=== PATIENT | male | born 1950 | race Caucasian/White ===

== ENCOUNTER 2016-09-13 07:45 | Inpatient (IN) | payer BC ==
--- NOTE | ~2016-09-13 | OP ---
Record Of Operation [facility] [address] [place]. [address] NAME: YOSELIN MOSQUEDA : 52 STATUS : ADM IN PAT#: [id number] AGE: 65 ADM/REG DATE : 09/14/16 MR#: [id number] REPORT SERV DATE: 09/19/16 DICTATED BY: ISAIAH SERNA DATE: 09/19/16 REPORT STATUS : Draft TRANSCRIBED BY: MODL DATE: 09/19/16 DATE OF PROCEDURE: 09/18/2016 PREOPERATIVE DIAGNOSIS: Coronary artery disease with unstable angina. POSTOPERATIVE DIAGNOSIS: Coronary artery disease with unstable angina. OPERATIVE PROCEDURE: Urgent coronary artery bypass grafting x4 with endoscopic vein harvest utilizing the left internal mammary artery to the LAD artery; reverse saphenous vein graft from the aorta to the diagonal artery; from the aorta to the ramus intermedius; and from the aorta to the obtuse marginal artery; and also transesophageal echocardiography. ANESTHESIA: General endotracheal anesthesia, AA. Chest tubes placed were two. Pacing wires two on the right ventricle and two on the right atrium. PERTINENT HISTORY: The patient is a 65-year-old gentleman, referred by Dr. Isaiah George with severe coronary artery disease. The patient had a previous stent placed in the right coronary artery and now has severe disease involving the left-sided system and unstable angina. OPERATIVE FINDINGS: The patient had transesophageal echocardiogram which demonstrated no mitral valvular insufficiency at the completion of the procedure and also demonstrated preserved left ventricular function. The operative targets were adequate although the coronary artery disease was quite diffuse. The right coronary artery had a patent stent and no significant stenoses but there were multiple palpable atheromatous plaques in the right coronary arterial system. OPERATIVE PROCEDURE: The patient was taken to the operating room and placed in the supine position. Anesthesia was obtained. The patient was prepped and draped in the usual sterile fashion. Transesophageal echocardiogram was performed demonstrating mild mitral insufficiency. The greater saphenous vein was harvested from the lower extremity with invasive technique and those wounds were closed in a two-layer fashion. A midline sternotomy incision was made and sternum was divided. Left internal mammary artery was dissected and found to have good flow. Heparin was then infused. The patient was then started on cardiopulmonary bypass. Cross-clamp was applied. Cardioplegia was infused in antegrade and retrograde fashion over a period of 15 minutes. The obtuse marginal artery was bypassed with a reverse saphenous vein graft in an end-to-side fashion. The ramus intermedius was bypassed from the reverse saphenous vein graft in an end-to-side fashion. The first diagonal artery was bypassed with reverse saphenous vein graft in an end-to-side fashion. The left internal mammary artery was used to bypass the LAD artery in an end-to- side fashion. Cross-clamp was sewn in place on the 3 proximal anastomoses on the ascending aorta. Cross-clamp was removed. Good hemostasis was noted. Two pacing wires were placed on the right ventricle and two on the right atrium and two chest tubes were placed. The patient was warmed to 36 centigrade and maintained a sinus rhythm. He was weaned from Record Of Operation [address] [place]. [address] NAME: YOSELIN MOSQUEDA ANSHUL : 52 STATUS : ADM IN [facility]#: [id number] AGE: 65 ADM/REG DATE : 09/14/16 MR#: [id number] REPORT SERV DATE: 09/19/16 DICTATED BY: ISAIAH SERNA DATE: 09/19/16 REPORT STATUS : Draft TRANSCRIBED BY: MILADIS DATE: 09/19/16 cardiopulmonary bypass. Transesophageal echocardiogram was performed at that time and demonstrated no mitral insufficiency present with good ventricular function. The patient is not on any inotropic support. The protamine sulfate was infused. Hemostasis was adequate. Sternum was closed with 4 sternal cables. Soft tissue was closed in the usual manner. Sterile dressings were applied. The patient tolerated the procedure well and was taken back to the ICU in stable condition. RADHA/MILADIS Isaiah Serna M.D. / [id number] CC: Merary Desai Jr., M.D.
--- NOTE | ~2016-09-13 | CN ---
Consultation Report [facility] [address] [place]. [address] NAME: YOSELIN MOSQUEDA : 52 STATUS : ADM IN PAT#: [id number] AGE: 65 ADM/REG DATE : 09/14/16 MR#: [id number] REPORT SERV DATE: 09/19/16 DICTATED BY: ELIANA AGUILAR DATE: 09/19/16 REPORT STATUS : Draft TRANSCRIBED BY: MODL DATE: 09/19/16 MEDICAL CONSULTATION DATE OF CONSULTATION: REASON FOR CONSULTATION: Diabetes, uncontrolled. HISTORY OF PRESENT ILLNESS: This is a 65-year-old white male, who has longstanding history of adult-onset diabetes mellitus. He has been seen by life educator in his preoperative period. He had a hemoglobin A1c of 6.8. He is followed by Dr. Johny Dalal. He is on oral agents prior to admission. He has undergone a CABG four vessels, KYE to LAD, and saphenous vein graft to a diagonal, saphenous vein graft to ramus intermedius, and saphenous vein graft to the obtuse marginal. He has done well postoperatively and is transferred to the floor. I am seeing the patient on the floor per request of Dr. Serna. PAST MEDICAL HISTORY: He has history of hypothyroidism and hypertension. He has hyperlipidemia, hypertriglyceridemia, and is medicated for this. He sees Dr. Johny Dalal. HOSPITAL MEDICATIONS: Include now amlodipine 5 mg p.o. daily, atorvastatin 40 mg p.o. at bedtime, amiodarone 400 mg q.6 h., levothyroxine 100 mcg p.o. daily, lisinopril 2 mg, and metoprolol 2.5 p.o. b.i.d. SOCIAL HISTORY: He is . Lives with . 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 He does not smoke or drink. He does not take drugs. FAMILY HISTORY: Mother had diabetes and coronary artery disease. Father had prostate cancer and dementia. REVIEW OF SYSTEMS: He has chest pain with movement and deep breathing. No cough. No fever, chills, night sweats, melena, hematemesis, unilateral weakness. He feels fidgety, agitated, and feels like he could do more than he is able to be physically now postoperatively. The remainder of review of systems is negative. PHYSICAL EXAMINATION: GENERAL: White male, in no acute distress. VITAL SIGNS: Blood pressure 138/70. Blood sugar went to 129 from 90 early, off the insulin drip. HEENT: EOMI. Sclerae clear. Conjunctivae pink. NECK: No bruit without any JVD. Consultation Report [facility] [address] [place]. [address] NAME: YOSELIN MOSQUEDA : 52 STATUS : ADM IN PAT#: [id number] AGE: 65 ADM/REG DATE : 09/14/16 MR#: [id number] REPORT SERV DATE: 09/19/16 DICTATED BY: ELIANA AGUILAR DATE: 09/19/16 REPORT STATUS : Draft TRANSCRIBED BY: MILADIS DATE: 09/19/16 CHEST: Clear to A and P. HEART: Regular S1, S2 without murmur, gallop, or click. ABDOMEN: Soft, nontender. Bowel sounds positive. No HSM. EXTREMITIES: Have trace edema bilaterally from saphenous vein harvesting. NEUROLOGIC: He withdraws to plantar stimulation. Investigation Officer is equal and symmetric bilaterally. Coordination intact. He has no tremor. He does have some intermittent confusion. He has aching and groaning. LABORATORY DATA: The creatinine is 1.12, BUN is 19. Sodium 147, potassium 3.8. His hemoglobin is 10.2, hematocrit 30.3, white count 8.9, platelets 183,000. His blood sugars gone from 90 to 129 on 1 unit/hour. ASSESSMENT: 1. Diabetes type 2, fairly well controlled with oral agents preoperatively and I believe that metformin would be sufficient when we restart him back initially, though with his anorexia, we will withhold this and leave him here 10 units subcu at bedtime starting tonight. We will discontinue the insulin drip now and use sliding scale level 2. 2. Status post coronary artery bypass graft x4. 3. Hypothyroidism. 4. Anorexia. 5. Hypertension by history. PLAN: As outlined above. Converting to subcutaneous basal insulin and sliding scale to cover bolus though he may need bolus before meals to control prior to discharge. We will follow. Thank you for the consultation. SIRIA/MILADIS Eliana Aguilar M.D. / [id number] CC: Merary Desai Jr., M.D. Kent Grotefendt, M.D.
--- NOTE | ~2016-09-13 | CN ---
Consultation Report [facility] [address] [facility] [place]. [address] NAME: YOSELIN MOSQUEDA : 52 STATUS : ADM IN PAT#: [id number] AGE: 65 ADM/REG DATE : 09/14/16 MR#: [id number] REPORT SERV DATE: 09/19/16 DICTATED BY: ISAIAH SERNA DATE: 09/19/16 REPORT STATUS : Draft TRANSCRIBED BY: MODL DATE: 09/19/16 CONSULTATION DATE OF CONSULTATION: 09/16/2016 PERTINENT HISTORY: The patient is a 65-year-old gentleman, referred by Dr. Isaiah George after a cardiac catheterization demonstrated severe coronary artery disease. The patient is admitted to the hospital with unstable angina and very tight stenoses involving the LAD artery on the left side of the coronary system and therefore the patient is admitted to the hospital for heparin therapy as he had adequate time for the Plavix to leave the system and normal platelet function to return prior to the surgical intervention. The patient had episodes of angina and shortness of breath with exertion. PAST MEDICAL HISTORY: The past medical history is significant for no previous open cardiothoracic surgery. Did have previous stent in the right coronary artery. History of diabetes mellitus and hypertension. SOCIAL HISTORY: Negative for tobacco and ethanol use at this time. FAMILY HISTORY: Positive for coronary disease. REVIEW OF SYSTEMS: Significant for only those Listed in the history of present illness. PHYSICAL EXAMINATION: VITAL SIGNS: Afebrile. Blood pressure is 140/90, heart rate is 70. GENERAL: He is in no acute distress. Alert and oriented x3. NEUROLOGICAL: Intact. NECK: No bruits noted in his neck. No adenopathy of the neck. CHEST: He had breath sounds bilaterally without wheezes, rales, or rhonchi. HEART: The patient had regular rate and rhythm. No murmur noted. ABDOMEN: Soft and nontender without masses. EXTREMITIES: Warm and dry. SKIN: Showed no rash. The cardiac catheterization on my examination showed tight stenoses of the LAD artery and stenosis involving the first diagonal artery. There is stenosis involving the circumflex artery and total occlusion of a very small distal branch with also stenosis involving the ramus intermedius. No left ventriculogram had been performed. There was a patent right coronary artery but patent stent in the right coronary artery. No significant disease or atheroma was present. IMPRESSION: The impression at this time is severe coronary disease with unstable angina. Consultation Report [facility] [address] [facility] [address] NAME: YOSELIN MOSQUEDA : 52 STATUS : ADM IN PAT#: [id number] AGE: 65 ADM/REG DATE : 09/14/16 MR#: [id number] REPORT SERV DATE: 09/19/16 DICTATED BY: ISAIAH SERNA DATE: 09/19/16 REPORT STATUS : Draft TRANSCRIBED BY: MILADIS DATE: 09/19/16 PLAN: Plan is to proceed with coronary revascularization after adequate Plavix washout. RADHA/MILADIS Isaiah Serna M.D. / [id number] CC: Merary Deasi Jr., M.D.
--- NOTE | ~2016-09-13 | CN ---
Consultation Report [facility] [address] [place]. [address] NAME: YOSELIN MOSQUEDA : 52 STATUS : REG REF PAT#: [id number] AGE: 65 ADM/REG DATE : 09/13/16 MR#: [id number] REPORT SERV DATE: 09/14/16 DICTATED BY: ELIANA MYERS DATE: 09/13/16 REPORT STATUS : Draft TRANSCRIBED BY: MODL DATE: 09/13/16 DATE OF CONSULTATION: REASON FOR CONSULTATION: Evaluation and management of diabetes and hypothyroidism. The history is obtained from the patient and from his current chart. HISTORY OF PRESENT ILLNESS: Mr. Mosqueda in the setting of known coronary artery disease post previous PCI in 2012, began having exertional chest pain and dyspnea. He saw his technical designer. He had an outpatient stress test which was abnormal. He underwent cardiac catheterization today with findings: Moderate to severe stenosis in the LAD at the first diagonal bifurcation. Critical mid LAD stenosis with reduction in KARY flow. Severe ostial ramus. Moderate to severe proximal OM1. Occluded proximal circumflex after OM1 with weak collateralization noted. LVEDP of 10 to 12. Admission for IV heparin and CT surgical consultation for CABG plus echocardiography was recommended. An echocardiogram was done today which showed normal LV size with preserved EF of 55%. Mild diastolic dysfunction. Mild left atrial enlargement. Normal RV size and systolic function. Aortic valve sclerosis with mild regurgitation and no stenosis. Borderline mitral valve prolapse, posterior P2 segment. Mild eccentric mitral regurgitation. Mildly dilated aortic root. He has a history of diabetes for perhaps 20 years. He has been on medical therapy with metformin. He does not follow any particular diet, nor does he check his blood sugars at home. He indicates his last hemoglobin A1c was 6.7. He has not had formal diabetes education. He reports no symptoms suggestive of hypoglycemia. His weight has been stable. He stays active. He has no history of complications of retinopathy, neuropathy, nephropathy, gastroparesis, or frequent infections. He has a history of hypothyroidism for perhaps 15 years. He has been on a stable dose of Synthroid. He is not certain when his last TSH has been. He has not noted any change in his skin. He has not been fatigued. He has not been retaining fluid. No tremor. No diffuse muscle or joint pains. No constipation or diarrhea or change in sense of well being. His other medical history includes: 1. Hypertension. 2. Hyperlipidemia. 3. B12 deficiency. 4. Retinal embolus, OS, 02/2016, with reported negative carotid ultrasound. 5. GERD symptoms. 6. Clinical gout. Consultation Report [facility] [address] [place]. [address] NAME: YOSELIN MOSQUEDA : 52 STATUS : REG REF PAT#: [id number] AGE: 65 ADM/REG DATE : 09/13/16 MR#: [id number] REPORT SERV DATE: 09/14/16 DICTATED BY: ELIANA MYERS DATE: 09/13/16 REPORT STATUS : Draft TRANSCRIBED BY: MILADIS DATE: 09/13/16 He has no history of cancer, VTE, COPD, sleep apnea, pulmonary fibrosis, syncope, symptomatic arrhythmias, stroke, seizure, gastrointestinal bleeding, cirrhosis, pancreatitis, hepatitis, renal stones, or voiding dysfunction. He has no systemic rheumatic disease and is not on immunosuppressive therapy. HOME MEDICATIONS: Amlodipine 5 mg daily; vitamin C 500 mg daily; aspirin 81 mg daily; Lipitor 40 mg daily; vitamin D3 5000 units daily; Plavix 75 mg daily; B12 2000 mcg daily; levothyroxine 100 mcg daily; Prinivil 2.5 mg daily; Glucophage 1000 mg twice daily; Lopressor 25 mg twice daily; and nitroglycerin sublingually as needed. ALLERGIES OR INTOLERANCE: To codeine and hydrocodone. FAMILY HISTORY: No sibs. Mother with cardiovascular disease. Father with dementia and had prostate cancer. SOCIAL HISTORY: Current marriage for four years. Was in the [employer] business. 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 Stopped smoking 25 years ago. Uses alcohol in small amounts daily. 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 REVIEW OF SYSTEMS: Complete, done with patient in room and negative except as noted above. PHYSICAL EXAMINATION: VITAL SIGNS: O2 saturation 96% on room air, blood pressure 125/68, temperature 97.5, pulse 82, and respirations 25. Weight 76.28 kg. Height 5 feet 9 inches. GENERAL: This is a stated age-appearing, well-developed, well-nourished white male. Examined in cardiac short stay 6. He is alert, oriented, cooperative, conversant, and appropriate. SKIN: Warm and dry. No rash, petechia, or ecchymosis. Skin is estevez. NODES: No palpable axillary, cervical, or inguinal. HEENT: Atraumatic with symmetric facies. Lids, sclerae, and conjunctivae negative. No xanthelasma, scleral icterus, or conjunctival petechiae or injection. Pupils are equal, round, and reactive to light. Extraocular movements intact. No nystagmus. Hearing intact. External ears negative. Nose negative. Anterior nares clear. Lips, gums, mucosa, hard and soft palates, posterior pharynx, tongue, gums, and teeth negative. NECK: No visible JVD or asymmetry. No palpable mass, goiter, or tenderness. Trachea midline. Nontender. LUNGS: Clear to auscultation. Normal respiratory effort. HEART: PMI not palpable. Regular rate and rhythm with 1/6 systolic murmur without diastolic murmur, click, rub, or S3 gallop. Pulses, 2+ left radial, 2+ right radial (cath site), 2+ femoral and dorsalis pedis. ABDOMEN: Soft, nontender. No guarding, rebound, or rigidity. Cannot feel liver, spleen, kidneys, or aortic pulsation. Consultation Report [address] [place]. [address] NAME: YOSELIN MOSQUEDA : 52 STATUS : REG REF PAT#: [id number] AGE: 65 ADM/REG DATE : 09/13/16 MR#: [id number] REPORT SERV DATE: 09/14/16 DICTATED BY: ELIANA MYERS DATE: 09/13/16 REPORT STATUS : Draft TRANSCRIBED BY: MILADIS DATE: 09/13/16 UPPER AND LOWER EXTREMITIES: No active synovitis, clubbing, or edema. NEUROLOGIC: Mental status normal. Cranial nerves 2 through 12 normal. Deep tendon reflexes absent. Sensory intact to touch and temperature. PSYCHIATRIC: Appropriate mood and affect. DATA: That is available: Sodium 138, potassium 4.6, chloride 106, CO2 of 26, BUN 17, creatinine 1.03, glucose 130, calcium 8.89. Cholesterol 175, HDL 36, LDL 63, non-HDL 119, triglycerides 281. White count 4.7, hemoglobin 14.1, platelets 176,000. Chest x-ray not available. EKG: Sinus rhythm, no acute changes. ASSESSMENT: This is a 65-year-old white male with: 1. Diabetes. 2. Hypothyroid. 3. Hypertension. 4. Hyperlipidemia. 5. Multivessel coronary disease for CABG consideration with previous history of PCI in 2012. 6. B12 deficiency. 7. Retinal embolus, left eye, 01/2016, with negative carotid ultrasound. 8. Gastroesophageal reflux disease symptoms. 9. Clinical gout. PLAN: Metformin has been held. Begin correction scale insulin. A 2000-calorie diet. Check TSH and A1c in addition to urinalysis, chest x-ray, and hepatic function panel. We will follow up in a.m. Thank you for this consultation. DD/MODL Eliana Myers M.D. / [id number] CC: Merary Desai Jr., M.D.
--- NOTE | ~2016-09-13 | DS ---
Discharge Summary [facility] [address] [place]. [address] NAME: YOSELIN MOSQUEDA : 52 STATUS : DIS IN PAT#: [id number] AGE: 65 ADM/REG DATE : 09/14/16 MR#: [id number] REPORT SERV DATE: 10/08/16 DICTATED BY: ANTONIO GEORGE JR. DATE: 10/07/16 REPORT STATUS : Draft TRANSCRIBED BY: MILADIS DATE: 10/07/16 Data Collection from hospitalization DISCHARGE DIAGNOSES: 1. Coronary artery disease, status post coronary artery bypass. 2. Hypertension. 3. Adult-onset diabetes. 4. History of old inferior myocardial infarction. 5. Mitral insufficiency-nonrheumatic. 6. Mixed hyperlipidemia. 7. Hypothyroidism. 8. Former smoker. 9. B12 deficiency. 10.Gout. 11.Gastroesophageal reflux disease. 12.History of retinal embolus. CONSULTATIONS: Dr. Isaiah George, Dr. Martin Myers. PROCEDURES PERFORMED: 1. Cardiac catheterization, 09/13/2016. 2. Urgent coronary artery bypass grafting x4 with endoscopic vein harvest utilizing the FONTANA to the LAD, reverse saphenous vein graft from the aorta to the diagonal artery, from the aorta to the ramus intermedius, and from the aorta to the obtuse marginal artery and also transesophageal echocardiography, 09/18/2016. 3. Carotid blood flow study, 09/13/2016. MEDICATIONS: Norvasc 5 mg daily, vitamin C 500 mg daily, aspirin 81 mg daily, Lipitor 40 mg at bedtime, vitamin D3 of 5000 units daily, Plavix 75 mg daily, vitamin B12 of 2000 mcg sublingually daily, levothyroxine 100 mcg daily, Prinivil 10 mg daily, Glucophage XR 1000 mg twice a day, Lopressor 25 mg twice a day, NitroQuick 0.4 mg sublingually as needed, Ultram 50 mg every four hours as needed. CONDITION AT DISCHARGE: Stable. DISPOSITION: The patient was discharged to home on an 1800-calorie cardiac/diabetic diet with activities as instructed. He would follow up with me, 10/22/2016. He would follow up with Dr. Isiaah Serna, 10/14/2016. He would follow up with Dr. Johny Dalal in 7 to 10 days following discharge. HOSPITAL COURSE: This is a 65-year-old man who underwent a cardiac catheterization on 09/13/2016. This demonstrated severe coronary artery disease. The patient had unstable angina and very tight stenoses involving the LAD artery on the left side and the coronary system and it was felt that the patient would need heparin therapy as he had adequate time for Plavix to leave the system and normal platelet function to return prior to further surgical intervention. The patient had episodes of angina and shortness of breath with exertion. He was admitted to the hospital for further evaluation and treatment. Discharge Summary [address] [address] NAME: YOSELIN MOSQUEDA : 52 STATUS : DIS IN PAT#: [id number] AGE: 65 ADM/REG DATE : 09/14/16 MR#: [id number] REPORT SERV DATE: 10/08/16 DICTATED BY: ANTONIO GEORGE JR. DATE: 10/07/16 REPORT STATUS : Draft TRANSCRIBED BY: MILADIS DATE: 10/07/16 Upon admission, he was seen by Dr. Isaiah Serna. The patient has severe coronary artery disease. He has had a previous stent placed in the right coronary artery and now has severe disease involving the left side and sustained an unstable angina. It was felt that the patient would need to undergo coronary artery bypass grafting. A carotid blood flow study was performed as well as an echocardiogram. The patient was seen in consultation by Dr. Martin Myers for evaluation and management of diabetes and hypothyroidism. An echocardiogram had shown normal LV size with preserved ejection fraction of 55%. There was mild diastolic dysfunction and mild left atrial enlargement. There was normal right ventricular size and systolic function. There was aortic valve sclerosis with mild regurgitation and no stenosis. There was borderline mitral valve prolapse, posterior P2 segment. There was mild eccentric mitral regurgitation and mildly dilated aortic root. The patient has had a history of diabetes for about 20 years. He had been on medical therapy with metformin. He does not follow any particular diet nor does he check his blood sugars at home. He said last hemoglobin A1c was 6.7. He had not had any formal diabetes education. He reported no symptoms suggestive of hypoglycemia. His weight had been stable. He said he stays active. Metformin was held. He was placed on sliding scale insulin and a 2000-calorie diet. We were going to check a TSH and hemoglobin A1c in addition to urinalysis chest x-ray and hepatic function panel. On the 09/14/2016, he became a full admit. He had no chest pain or dyspnea. He had no edema. He had normal distal pulses. Insulin was increased. He did have a cough. The following day, aspirin, atorvastatin, and metoprolol were continued. Echocardiogram showed normal systolic function. Heparin drip continued. Over the next couple of days, plans were made to proceed with surgical intervention. Echocardiogram had shown the ejection fraction of 55%. He has mild mitral regurgitation and mild aortic insufficiency. He had no aortic stenosis. He had no complaints of chest pain. Blood pressure was controlled. His Synthroid was continued. He underwent diabetes education. On 09/18/2016, he was taken to the operating room where he underwent the above-mentioned procedure by Dr. Isaiah Serna. He tolerated this well. There were no complications. The following day, he had no complaints. He was doing well. Metoprolol was started. After norepinephrine was stopped. Other anticoagulation was held for now. He was up sitting in a chair. Creatinine level was 1.12. His wounds looked okay. On the 09/20/2016, his hemoglobin A1c was 6.8. He had received steroids intraoperatively and did have elevated blood glucose level. Blood pressure was uncontrolled at this time. Lisinopril was being given. Synthroid was continued. We encouraged him to increase his ambulation. Discharge planning was performed. Pacing wires and chest tubes were removed. We encouraged him to use incentive spirometry. O2 was being weaned. Blood pressure was now controlled. On 09/22/2016, he was up sitting in a chair. He was still on O2, but his O2 saturations were 93% to 94% on room air. He had no shortness of breath. Later in the day, his O2 saturation was 97% on room air. Metformin was going to be continued at home. Blood pressure was controlled. Discharge instructions were given. Due to his improved and stable condition, he was discharged to home with the above-stated instructions. Information collected by: Narda Lord I submit the above information as my discharge summary. Discharge Summary [address] [facility] [place]. [address] NAME: YOSELIN MOSQUEDA ANSHUL : 52 STATUS : DIS IN PAT#: [id number] AGE: 65 ADM/REG DATE : 09/14/16 MR#: [id number] REPORT SERV DATE: 10/08/16 DICTATED BY: ANTONIO GEORGE JR. DATE: 10/07/16 REPORT STATUS : Draft TRANSCRIBED BY: MILADIS DATE: 10/07/16 TG/MILADIS Antonio George Jr., M.D. / [id number] CC: Merary Desai Jr., M.D. Stephen Martin, M.D.
[~2016-09-13 07:45] MED LIST: AMIT25 PO; ASAB PO; B POLLEN PO; CENTRUM TAB1 TAB PO; CYANO1000T PO; EFFIENT10 PO; GLUCOPHXR PO; GLUCPH PO; LEVOTHYROXIN100 MCG PO; LIPITOR40 PO; LOP25 PO; NITROQUICK0.4 MG SL; NORV5 PO; PLAVIX PO; PRIN2.5 PO; T PO; VITAMIN B-121000 MC1 SL; VITAMIN D1000 UNI1 PO; VITAMIN D31000 UNIT PO; VITC500 PO; VITE PO
[2016-09-13 08:43] LABS: BASOPHILS 0.8 %; BASOPHILS ABSOLUTE 0.04 10/3/uL (0.0-0.16); EOSINOPHILS ABSOLUTE 0.47 10/3/uL (0.0-0.53); HEMATOCRIT 40.3 % (40.0-51.0); HEMOGLOBIN 14.1 g/dL (13.6-17.8); IMMATURE GRANULOCYTES 0.2 %; IMMATURE GRANULOCYTES ABSOLUTE 0.01 10/3/uL (0.0-0.11); LYMPHOCYTES 24.4 %; LYMPHOCYTES ABSOLUTE 1.15 10/3/uL (0.67-4.30); MEAN CORPUSCULAR HEMOGLOB 31.3 pg (26.0-34.0); MEAN CORPUSCULAR VOLUME 89.6 fL (80-100); MEAN PLATELET VOLUME 10.5 fL (9.2-13.0); MONOCYTES 8.9 %; MONOCYTES ABSOLUTE 0.42 10/3/uL (0.21-1.20); NEUTROPHILS 55.7 %; NEUTROPHILS ABSOLUTE 2.63 10/3/uL (2.02-8.40); PLATELET COUNT 176 10/3/uL (150-400); RBC DISTRIBUTION WIDTH 13.2 % (12.0-16.0); WHITE BLOOD CELLS 4.7 10/3/uL (4.5-10.5)
[2016-09-13 08:47] LABS: MANUAL DIFF NO %
[2016-09-13 09:01] LABS: BUN (BLOOD UREA NITROGEN) 17 MG/DL (6-23); CALCIUM, SERUM 8.8 MG/DL (8.5-10.4); CHLORIDE, SERUM 106 MMOL/L (96-112); CHOL/HDL RATIO(NOT ORDER) 4.3 (0-5); CHOLESTEROL 155 MG/DL (< 200); CO2 (CARBON DIOXIDE) 26 MMOL/L (24-34); CREATININE 1.03 MG/DL (0.70-1.30); GFR AFRICAN AMERICAN 89 ML/MIN (>=60); GFR NON AFRICAN AMERICAN 76 ML/MIN (>=60); GLUCOSE, SERUM 130 MG/DL (60-99); HDL CHOLESTEROL 36 MG/DL (> 39); LDL CHOLESTEROL 63 MG/DL (< 130); NON-HDL CHOLESTEROL 119 MG/DL (< 160); POTASSIUM, SERUM 4.6 MMOL/L (3.5-5.3); SODIUM, SERUM 138 MMOL/L (135-148); TRIGLYCERIDE 281 MG/DL (< 150)
[2016-09-13 18:17] LABS: DIRECT BILIRUBIN 0.1 MG/DL (0.0-0.4); INDIRECT BILIRUBIN(NOT ORDER) 0.6 MG/DL (0.1-0.9); SGOT(AST) 23 U/L (5-40); SGPT(ALT) 33 U/L (5-65); TOTAL BILIRUBIN 0.7 MG/DL (0-1.2); ULTRASENSITIVE TSH 0.478 MCIU/ML (0.358-3.740)
[2016-09-13 18:22] LABS: ALKALINE PHOSPHATASE 106 U/L (45-117)
[2016-09-13 18:36] LABS: ALBUMIN 3.8 G/DL (3.5-5.0); TOTAL PROTEIN 6.7 G/DL (6.0-8.5)
[2016-09-13 21:54] LABS: WBC (NOT ORDERED) (RFLEX) 0 (0-5)
[2016-09-13 22:01] LABS: ASCORBIC ACID (UR NOT ORDER) NEG (NEG); BILIRUBIN, URINE NEGATIVE (NEG); KETONE, URINE NEGATIVE (NEG); LEUKOCYTE ESTERASE(NOT OR NEG (NEG)
[2016-09-14 05:14] LABS: BASOPHILS ABSOLUTE 0.04 10/3/uL (0.0-0.16); EOSINOPHILS 11.5 %; EOSINOPHILS ABSOLUTE 0.48 10/3/uL (0.0-0.53); HEMATOCRIT 39.6 % (40.0-51.0); HEMOGLOBIN 13.7 g/dL (13.6-17.8); IMMATURE GRANULOCYTES 0.2 %; IMMATURE GRANULOCYTES ABSOLUTE 0.01 10/3/uL (0.0-0.11); LYMPHOCYTES ABSOLUTE 1.33 10/3/uL (0.67-4.30); MEAN CORPUS HGB CONC 34.6 g/dL (32.0-36.0); MEAN CORPUSCULAR HEMOGLOB 31.1 pg (26.0-34.0); MEAN PLATELET VOLUME 10.7 fL (9.2-13.0); MONOCYTES 8.7 %; MONOCYTES ABSOLUTE 0.36 10/3/uL (0.21-1.20); NEUTROPHILS 46.6 %; NEUTROPHILS ABSOLUTE 1.94 10/3/uL (2.02-8.40); PLATELET COUNT 157 10/3/uL (150-400); RBC DISTRIBUTION WIDTH 13.2 % (12.0-16.0); WHITE BLOOD CELLS 4.2 10/3/uL (4.5-10.5)
[2016-09-14 05:15] LABS: MANUAL DIFF NO %
[2016-09-14 05:27] LABS: BUN (BLOOD UREA NITROGEN) 17 MG/DL (6-23); CALCIUM, SERUM 8.7 MG/DL (8.5-10.4); CHLORIDE, SERUM 109 MMOL/L (96-112); CO2 (CARBON DIOXIDE) 26 MMOL/L (24-34); CREATININE 0.91 MG/DL (0.70-1.30); GFR AFRICAN AMERICAN 103 ML/MIN (>=60); GFR NON AFRICAN AMERICAN 89 ML/MIN (>=60); GLUCOSE, SERUM 155 MG/DL (60-99); POTASSIUM, SERUM 4.1 MMOL/L (3.5-5.3); SODIUM, SERUM 140 MMOL/L (135-148)
[2016-09-16 03:29] LABS: BASOPHILS 0.8 %; BASOPHILS ABSOLUTE 0.04 10/3/uL (0.0-0.16); EOSINOPHILS 9.8 %; EOSINOPHILS ABSOLUTE 0.48 10/3/uL (0.0-0.53); HEMATOCRIT 40.5 % (40.0-51.0); HEMOGLOBIN 14.2 g/dL (13.6-17.8); IMMATURE GRANULOCYTES 0.2 %; IMMATURE GRANULOCYTES ABSOLUTE 0.01 10/3/uL (0.0-0.11); LYMPHOCYTES 29.4 %; LYMPHOCYTES ABSOLUTE 1.44 10/3/uL (0.67-4.30); MEAN CORPUS HGB CONC 35.1 g/dL (32.0-36.0); MEAN CORPUSCULAR HEMOGLOB 31.6 pg (26.0-34.0); MEAN CORPUSCULAR VOLUME 90.2 fL (80-100); MEAN PLATELET VOLUME 10.5 fL (9.2-13.0); MONOCYTES 11.4 %; MONOCYTES ABSOLUTE 0.56 10/3/uL (0.21-1.20); NEUTROPHILS 48.4 %; NEUTROPHILS ABSOLUTE 2.37 10/3/uL (2.02-8.40); PLATELET COUNT 169 10/3/uL (150-400); RBC DISTRIBUTION WIDTH 13.2 % (12.0-16.0); RED CELL COUNT 4.49 10/6/uL (4.7-6.1); WHITE BLOOD CELLS 4.9 10/3/uL (4.5-10.5)
[2016-09-16 03:34] LABS: MANUAL DIFF NO %
[2016-09-16 03:41] LABS: BUN (BLOOD UREA NITROGEN) 17 MG/DL (6-23); CHLORIDE, SERUM 108 MMOL/L (96-112); CO2 (CARBON DIOXIDE) 27 MMOL/L (24-34); CREATININE 1.03 MG/DL (0.70-1.30); GFR AFRICAN AMERICAN 89 ML/MIN (>=60); GFR NON AFRICAN AMERICAN 76 ML/MIN (>=60); GLUCOSE, SERUM 155 MG/DL (60-99); POTASSIUM, SERUM 4.5 MMOL/L (3.5-5.3); SODIUM, SERUM 141 MMOL/L (135-148)
[2016-09-18 05:01] LABS: BASOPHILS 0.8 %; BASOPHILS ABSOLUTE 0.05 10/3/uL (0.0-0.16); EOSINOPHILS 10.7 %; EOSINOPHILS ABSOLUTE 0.68 10/3/uL (0.0-0.53); HEMATOCRIT 42.7 % (40.0-51.0); HEMOGLOBIN 14.6 g/dL (13.6-17.8); IMMATURE GRANULOCYTES 0.5 %; IMMATURE GRANULOCYTES ABSOLUTE 0.03 10/3/uL (0.0-0.11); LYMPHOCYTES 27.4 %; LYMPHOCYTES ABSOLUTE 1.75 10/3/uL (0.67-4.30); MEAN CORPUS HGB CONC 34.2 g/dL (32.0-36.0); MEAN CORPUSCULAR HEMOGLOB 31.3 pg (26.0-34.0); MEAN CORPUSCULAR VOLUME 91.6 fL (80-100); MEAN PLATELET VOLUME 10.5 fL (9.2-13.0); MONOCYTES 8.5 %; MONOCYTES ABSOLUTE 0.54 10/3/uL (0.21-1.20); NEUTROPHILS 52.1 %; NEUTROPHILS ABSOLUTE 3.33 10/3/uL (2.02-8.40); PLATELET COUNT 194 10/3/uL (150-400); RBC DISTRIBUTION WIDTH 13.2 % (12.0-16.0); RED CELL COUNT 4.66 10/6/uL (4.7-6.1); WHITE BLOOD CELLS 6.4 10/3/uL (4.5-10.5)
[2016-09-18 05:02] LABS: MANUAL DIFF NO %; PROTIME (NOT ORD) 12.6 SEC (12.0-14.5)
[2016-09-18 05:16] LABS: % IRON SAT 35 % (20-50); A/G RATIO 1.2 (0.7-1.9); ALBUMIN 3.8 G/DL (3.5-5.0); BUN (BLOOD UREA NITROGEN) 20 MG/DL (6-23); CALCIUM, SERUM 9.4 MG/DL (8.5-10.4); CHLORIDE, SERUM 106 MMOL/L (96-112); CO2 (CARBON DIOXIDE) 28 MMOL/L (24-34); CREATININE 1.12 MG/DL (0.70-1.30); GFR AFRICAN AMERICAN 80 ML/MIN (>=60); GFR NON AFRICAN AMERICAN 69 ML/MIN (>=60); GLOBULIN 3.3 G/DL (2.5-4.1); GLUCOSE, SERUM 128 MG/DL (60-99); IRON BINDING CAPACITY 395 MCG/DL (250-450); IRON, SERUM 140 MCG/DL (35-150); SGOT(AST) 66 U/L (5-40); SGPT(ALT) 132 U/L (5-65); SODIUM, SERUM 139 MMOL/L (135-148); TOTAL BILIRUBIN 0.4 MG/DL (0-1.2); TOTAL PROTEIN 7.1 G/DL (6.0-8.5)
[2016-09-18 05:18] LABS: ALKALINE PHOSPHATASE 94 U/L (45-117)
[2016-09-18 19:38] LABS: BE (BASE EXCESS) -3.7 MEQ/L (0 +/- 2.5); CARBOXYHEMOGLOBIN 0.3 % (0-3); HCO3 (ACTUAL BICARBONATE) 21.4 MEQ/L (23-27); HEMOBLOGIN CONTENT 12.6 G/DL (14-18); INSTRUMENT SERIAL # 11843; METHEMOGLOBIN 0.7 % (0-3); MODE SIMV; O2 CONTENT 17.8 VOL% (18-24); OPERATOR ID 16469; PCO2 (CO2 TENSION) 39 MMHG (35-45); PO2 (O2 TENSION) 216 MMHG (79-93); SAMPLE Arterial; TIDAL VOLUME 600 ML; pH 7.36 (7.37-7.43)
[2016-09-18 19:48] LABS: HEMOGLOBIN 11.7 g/dL (13.6-17.8)
[2016-09-18 19:49] LABS: HEMATOCRIT 34.4 % (40.0-51.0); PLATELET COUNT 110 10/3/uL (150-400)
[2016-09-18 19:59] LABS: INTERNATIONAL NORMAL RATI 1.3 UNITS (-); PARTIAL THROMBO TIME 27.7 SEC (22.5-37.2)
[2016-09-18 20:00] LABS: PROTIME (NOT ORD) 16.3 SEC (12.0-14.5)
[2016-09-18 20:02] LABS: BUN (BLOOD UREA NITROGEN) 19 MG/DL (6-23); CALCIUM, SERUM 8.9 MG/DL (8.5-10.4); CHLORIDE, SERUM 108 MMOL/L (96-112); CO2 (CARBON DIOXIDE) 27 MMOL/L (24-34); CREATININE 1.38 MG/DL (0.70-1.30); GFR AFRICAN AMERICAN 62 ML/MIN (>=60); GFR NON AFRICAN AMERICAN 54 ML/MIN (>=60); POTASSIUM, SERUM 4.1 MMOL/L (3.5-5.3); SODIUM, SERUM 142 MMOL/L (135-148)
[2016-09-18 20:05] LABS: GLUCOSE, SERUM 89 MG/DL (60-99)
[2016-09-19 00:08] LABS: INSTRUMENT SERIAL # 11843; pH 7.31 (7.37-7.43)
[2016-09-19 00:09] LABS: BE (BASE EXCESS) -3.7 MEQ/L (0 +/- 2.5); CARBOXYHEMOGLOBIN 0.3 % (0-3); DEVICE NC; HCO3 (ACTUAL BICARBONATE) 22.7 MEQ/L (23-27); HEMOBLOGIN CONTENT 11.6 G/DL (14-18); METHEMOGLOBIN 0.7 % (0-3); O2 CONTENT 15.6 VOL% (18-24); OPERATOR ID 16469; PCO2 (CO2 TENSION) 47 MMHG (35-45); PO2 (O2 TENSION) 91 MMHG (79-93); SAMPLE Arterial
[2016-09-19 00:18] LABS: HEMATOCRIT 31.4 % (40.0-51.0); HEMOGLOBIN 10.9 g/dL (13.6-17.8)
[2016-09-19 00:26] LABS: POTASSIUM, SERUM 4.3 MMOL/L (3.5-5.3)
[2016-09-19 04:26] LABS: BASOPHILS 0.1 %; BASOPHILS ABSOLUTE 0.01 10/3/uL (0.0-0.16); EOSINOPHILS 0.3 %; EOSINOPHILS ABSOLUTE 0.03 10/3/uL (0.0-0.53); HEMATOCRIT 30.3 % (40.0-51.0); HEMOGLOBIN 10.2 g/dL (13.6-17.8); IMMATURE GRANULOCYTES 0.2 %; IMMATURE GRANULOCYTES ABSOLUTE 0.02 10/3/uL (0.0-0.11); LYMPHOCYTES 5.7 %; LYMPHOCYTES ABSOLUTE 0.51 10/3/uL (0.67-4.30); MEAN CORPUS HGB CONC 33.7 g/dL (32.0-36.0); MEAN CORPUSCULAR HEMOGLOB 31.2 pg (26.0-34.0); MEAN CORPUSCULAR VOLUME 92.7 fL (80-100); MEAN PLATELET VOLUME 10.5 fL (9.2-13.0); MONOCYTES 9.3 %; MONOCYTES ABSOLUTE 0.83 10/3/uL (0.21-1.20); NEUTROPHILS 84.4 %; NEUTROPHILS ABSOLUTE 7.51 10/3/uL (2.02-8.40); PLATELET COUNT 131 10/3/uL (150-400); RBC DISTRIBUTION WIDTH 13.2 % (12.0-16.0); WHITE BLOOD CELLS 8.9 10/3/uL (4.5-10.5)
[2016-09-19 04:28] LABS: MANUAL DIFF NO %; RED CELL COUNT 3.27 10/6/uL (4.7-6.1)
[2016-09-19 04:39] LABS: BUN (BLOOD UREA NITROGEN) 19 MG/DL (6-23); CALCIUM, SERUM 8.2 MG/DL (8.5-10.4); CHLORIDE, SERUM 114 MMOL/L (96-112); CO2 (CARBON DIOXIDE) 26 MMOL/L (24-34); CREATININE 1.12 MG/DL (0.70-1.30); GFR AFRICAN AMERICAN 80 ML/MIN (>=60); GFR NON AFRICAN AMERICAN 69 ML/MIN (>=60); POTASSIUM, SERUM 3.8 MMOL/L (3.5-5.3); SODIUM, SERUM 147 MMOL/L (135-148)
[2016-09-19 04:40] LABS: GLUCOSE, SERUM 90 MG/DL (60-99)
[2016-09-19 17:03] LABS: HEMATOCRIT 30.5 % (40.0-51.0); HEMOGLOBIN 10.2 g/dL (13.6-17.8)
[2016-09-19 17:11] LABS: POTASSIUM, SERUM 4.8 MMOL/L (3.5-5.3)
[2016-09-20 05:28] LABS: BASOPHILS 0.1 %; BASOPHILS ABSOLUTE 0.01 10/3/uL (0.0-0.16); EOSINOPHILS 0.2 %; EOSINOPHILS ABSOLUTE 0.02 10/3/uL (0.0-0.53); HEMATOCRIT 30.5 % (40.0-51.0); HEMOGLOBIN 10.2 g/dL (13.6-17.8); IMMATURE GRANULOCYTES 0.4 %; IMMATURE GRANULOCYTES ABSOLUTE 0.04 10/3/uL (0.0-0.11); LYMPHOCYTES ABSOLUTE 0.68 10/3/uL (0.67-4.30); MEAN CORPUS HGB CONC 33.4 g/dL (32.0-36.0); MEAN CORPUSCULAR HEMOGLOB 31.5 pg (26.0-34.0); MEAN CORPUSCULAR VOLUME 94.1 fL (80-100); MONOCYTES 11.8 %; MONOCYTES ABSOLUTE 1.15 10/3/uL (0.21-1.20); NEUTROPHILS 80.5 %; NEUTROPHILS ABSOLUTE 7.84 10/3/uL (2.02-8.40); PLATELET COUNT 123 10/3/uL (150-400); RBC DISTRIBUTION WIDTH 13.5 % (12.0-16.0); RED CELL COUNT 3.24 10/6/uL (4.7-6.1); WHITE BLOOD CELLS 9.7 10/3/uL (4.5-10.5)
[2016-09-20 05:35] LABS: MANUAL DIFF NO %
[2016-09-20 05:37] LABS: BUN (BLOOD UREA NITROGEN) 17 MG/DL (6-23); CALCIUM, SERUM 8.9 MG/DL (8.5-10.4); CO2 (CARBON DIOXIDE) 25 MMOL/L (24-34); CREATININE 0.98 MG/DL (0.70-1.30); GFR AFRICAN AMERICAN 94 ML/MIN (>=60); GFR NON AFRICAN AMERICAN 81 ML/MIN (>=60); POTASSIUM, SERUM 4.5 MMOL/L (3.5-5.3)
[2016-09-20 05:39] LABS: CHLORIDE, SERUM 99 MMOL/L (96-112); GLUCOSE, SERUM 211 MG/DL (60-99); SODIUM, SERUM 134 MMOL/L (135-148)
[2016-09-21 05:13] LABS: BASOPHILS 0.1 %; BASOPHILS ABSOLUTE 0.01 10/3/uL (0.0-0.16); EOSINOPHILS 0.7 %; EOSINOPHILS ABSOLUTE 0.05 10/3/uL (0.0-0.53); HEMATOCRIT 28.5 % (40.0-51.0); HEMOGLOBIN 9.6 g/dL (13.6-17.8); IMMATURE GRANULOCYTES 0.3 %; IMMATURE GRANULOCYTES ABSOLUTE 0.02 10/3/uL (0.0-0.11); LYMPHOCYTES 10.6 %; LYMPHOCYTES ABSOLUTE 0.79 10/3/uL (0.67-4.30); MEAN CORPUS HGB CONC 33.7 g/dL (32.0-36.0); MEAN CORPUSCULAR HEMOGLOB 31.2 pg (26.0-34.0); MEAN CORPUSCULAR VOLUME 92.5 fL (80-100); MEAN PLATELET VOLUME 10.9 fL (9.2-13.0); MONOCYTES 13.9 %; MONOCYTES ABSOLUTE 1.04 10/3/uL (0.21-1.20); NEUTROPHILS 74.4 %; NEUTROPHILS ABSOLUTE 5.55 10/3/uL (2.02-8.40); PLATELET COUNT 129 10/3/uL (150-400); RBC DISTRIBUTION WIDTH 13.5 % (12.0-16.0); RED CELL COUNT 3.08 10/6/uL (4.7-6.1); WHITE BLOOD CELLS 7.5 10/3/uL (4.5-10.5)
[2016-09-21 05:14] LABS: MANUAL DIFF NO %
[2016-09-21 05:29] LABS: A/G RATIO 1.1 (0.7-1.9); ALBUMIN 3.3 G/DL (3.5-5.0); CALCIUM, SERUM 8.9 MG/DL (8.5-10.4); CHLORIDE, SERUM 96 MMOL/L (96-112); CO2 (CARBON DIOXIDE) 28 MMOL/L (24-34); CREATININE 1.02 MG/DL (0.70-1.30); GFR AFRICAN AMERICAN 90 ML/MIN (>=60); GFR NON AFRICAN AMERICAN 77 ML/MIN (>=60); PHOSPHORUS, SERUM 2.7 MG/DL (2.5-4.5); POTASSIUM, SERUM 4.1 MMOL/L (3.5-5.3); SGOT(AST) 25 U/L (5-40); SGPT(ALT) 39 U/L (5-65); SODIUM, SERUM 131 MMOL/L (135-148); TOTAL BILIRUBIN 0.7 MG/DL (0-1.2); TOTAL PROTEIN 6.3 G/DL (6.0-8.5)
[2016-09-21 05:30] LABS: ALKALINE PHOSPHATASE 59 U/L (45-117); BUN (BLOOD UREA NITROGEN) 23 MG/DL (6-23); GLUCOSE, SERUM 159 MG/DL (60-99)
[2016-09-21 06:02] LABS: PROCALCITONIN 0.39 ng/mL (<0.5)
[2016-09-22] MEDS ORDERED: ULTRAM50 PO (11:51)
== END 2016-09-22 12:40 | disposition home or self-care (01) | DRG 234 ==
LOC: CORLMH 07:45 → SSU1 07:54 → CDU1 17:56 → 5NO 09-14 11:44 → SDC/OF 09-18 09:39 → 5NO 09-18 11:17 → SDC/OF 09-18 15:56 → CVICU 09-18 16:21 → 5NO 09-19 14:03
PROVIDERS: Internal Medicine; Internal Medicine Cardiovascular Disease; Thoracic Surgery (Cardiothoracic Vascular Surgery)
PROC: 4A023N7 Measurement of Cardiac Sampling and Pressure, Left Heart, Percutaneous Approach (ICD-10-PCS; principal; 2016-09-14)
PROC: B2111ZZ Fluoroscopy of Multiple Coronary Arteries using Low Osmolar Contrast (ICD-10-PCS; 2016-09-14)
PROC: 021209W Bypass Coronary Artery, Three Arteries from Aorta with Autologous Venous Tissue, Open Approach (ICD-10-PCS; 2016-09-14)
PROC: B2151ZZ Fluoroscopy of Left Heart using Low Osmolar Contrast (ICD-10-PCS; 2016-09-14)
PROC: 02100Z9 Bypass Coronary Artery, One Artery from Left Internal Mammary, Open Approach (ICD-10-PCS; 2016-09-14)
PROC: 06BP4ZZ Excision of Right Saphenous Vein, Percutaneous Endoscopic Approach (ICD-10-PCS; 2016-09-18)
PROC: B246ZZ4 Ultrasonography of Right and Left Heart, Transesophageal (ICD-10-PCS; 2016-09-18)
PROC: 5A1221Z Performance of Cardiac Output, Continuous (ICD-10-PCS; 2016-09-18)
DX: I25.110 Atherosclerotic heart disease of native coronary artery with unstable angina pectoris (principal); E53.8 Deficiency of other specified B group vitamins; E03.9 Hypothyroidism, unspecified; E11.9 Type 2 diabetes mellitus without complications; Z87.891 Personal history of nicotine dependence; Z95.5 Presence of coronary angioplasty implant and graft; Z79.84 Long term (current) use of oral hypoglycemic drugs; E78.5 Hyperlipidemia, unspecified; K21.9 Gastro-esophageal reflux disease without esophagitis; Z79.82 Long term (current) use of aspirin; Z79.02 Long term (current) use of antithrombotics/antiplatelets; Z88.5 Allergy status to narcotic agent; Z82.49 Family history of ischemic heart disease and other diseases of the circulatory system; Z80.42 Family history of malignant neoplasm of prostate; Z90.5 Acquired absence of kidney; Z98.890 Other specified postprocedural states; Z90.49 Acquired absence of other specified parts of digestive tract
CPT/HCPCS: 36415; 71010; 71020; 80048; 80053; 80061; 80069; 80076; 81001; 82330; 82803; 82805; 82947; 82962; 83036; 83540; 83550; 83735; 84132; 84145; 84295; 84443; 85014; 85018; 85025; 85049; 85347; 85610; 85730; 86850; 86900; 86901; 86920; 93005; 93306; 93312; 93320; 93325; 93458; 93880; 94002; 94640; 94660; 94770; 99152; A9270-GY; C1713; C1725; C1751; C1757; C1769; C1887; C1894; J0690; J1644; J1940; J2150; J2250; J2370; J2405; J2440; J2720; J3010; J3475; J3480; P9045; P9047; Q9967